=== PATIENT | female | born 1970 | race Two or more races ===

== ENCOUNTER 2019-03-21 09:38 | Inpatient (IN) | payer OTHER ==
[~2019-03-21] VITALS: Ht 154.9 cm; Wt 61.2 kg
[2019-03-21] MEDS ORDERED: SODIUM CHLORIDE FLUSH 10ML SYR IVF ONE (10:00)
[2019-03-21] MEDS ORDERED: ONDANSETRON 2MG/ML, 2ML IVPush ONE ×2 (10:00→12:00)
[2019-03-21] MEDS ORDERED: ONDANSETRON 2MG/ML, 2ML ONE ×2 (10:03→11:41)
[2019-03-21 10:23] LABS: BASOPHILS # (AUTO) 0.04 x10^3/uL (0-0.1); BASOPHILS % (AUTO) 0 % (0-1); EOSINOPHILS # (AUTO) 0.05 x10^3/uL (0-0.4); EOSINOPHILS % (AUTO) 1 % (1-7); LYMPHOCYTES # (AUTO) 1.75 x10^3/uL (1-3.4); LYMPHOCYTES % (AUTO) 19 % (22-44); MD NO; MEAN CORPUSCULAR HEMOGLOBIN 31.6 pg (27.0-34.8); MEAN CORPUSCULAR HGB CONC 34.1 g/dL (32.4-35.8); MEAN CORPUSCULAR VOLUME 92.6 fL (80-100); MEAN PLATELET VOLUME 8.2 fL (7.4-10.4); MONOCYTES # (AUTO) 0.43 x10^3/uL (0.2-0.8); MONOCYTES % (AUTO) 5 % (2-9); NEUTROPHILS % (AUTO) 76 % (42-75); PLATELET COUNT 410 x10^3/uL (130-400); RED BLOOD COUNT 5.31 x10^6/uL (3.82-5.3); RED CELL DISTRIBUTION WIDTH 12.4 % (9.6-15.2)
[2019-03-21 10:26] LABS: ALBUMIN 4.9 g/dL (3.4-5.0); ANION GAP 15 mmol/L (5-15); CALCIUM 10.5 mg/dL (8.5-10.1); CHLORIDE 89 mmol/L (98-107)
[2019-03-21 10:32] LABS: ALANINE AMINOTRANSFERASE 38 U/L (12-78); ALKALINE PHOSPHATASE 80 U/L (45-117); BILIRUBIN,TOTAL 0.8 mg/dL (0.2-1.0); CREATININE 1.62 mg/dL (0.55-1.02); TROPONIN I < 0.015 ng/mL (0.000-0.045)
--- NOTE | 2019-03-21 10:44 | NUR ---
LATE NOTE ENTRY FOR 0940: Pt presents to ED with c/o epigastric "burning", pain, and nausea after receibing antibiotic treatment for H. pylori. JONASN. Pt resting on gurney connected to NIBP, continous pulse ox, and cafeteria monitor. Bedrail up for safety measures. Call light within reach. Pt signed consent for her niece at bedside to provide translation after being offered [employer] translation. Pt polietly declined [employer] translation. Pt denies cp, sob, vomitting, diarrhea, traum, or syncope.
[2019-03-21 10:45] LABS: TOTAL PROTEIN 9.8 g/dL (6.4-8.2)
--- NOTE | 2019-03-21 10:55 | NUR ---
REPORT RECEIVED FROM JORDYN HANSEN, ASSUMING CARE OF PT AT THIS TIME
--- NOTE | 2019-03-21 11:04 | NUR ---
PT TAKEN FOR IMAGING
--- NOTE | 2019-03-21 11:27 | NUR ---
WHILE OVER IN RAD, PT BECAME SYNCOPAL WITH +ORTHOS, TACHY HR. NOW BACK IN ROOM PT STATES FEELING BETTER BP WNL AND HR BELOW 100. FAMLIY AT BEDSIDE. TO BE INFORMED. CALL LIGHT GREYSONIHIN REACH
[2019-03-21] MEDS ORDERED: POTASSIUM CHLORIDE 40 MEQ in SODIUM CHLORIDE 0.9% 500 ML IV ONE (11:30)
[2019-03-21] MEDS ORDERED: POTASSIUM CHLORIDE 20 MEQ TAB.ER.PRT PO ONE (11:30)
[2019-03-21] MEDS ORDERED: POTASSIUM CHLORIDE 20 MEQ TAB.ER.PRT ONE (11:38)
[2019-03-21] MEDS ORDERED: MORPHINE SULFATE 4 MG/ML, 1ML ONE (11:41)
--- NOTE | 2019-03-21 11:45 | NUR ---
VERBAL ORDERS RECEIVED FOR PAIN MEDS AND NAUSEA MEDS WELL A LITER BOLUS FOR BP.PT MEDCIATED. RESTING IN BED WITH STABLE VS. FAMILY AT BEDSIDE. US AT BEDSIDE. CALL LIGHT WTIHIN REACH
[2019-03-21] MEDS ORDERED: MORPHINE SULFATE 4 MG/ML, 1ML IVPush ONE (12:00)
--- NOTE | 2019-03-21 12:17 | NUR ---
HOSPITALIST AT BEDSIDE
[2019-03-21] MEDS ORDERED: POTASSIUM CHLORIDE 20 MEQ in LACTATED RINGERS 1,000 ML IV SCH (12:18)
--- NOTE | 2019-03-21 12:23 | NUR ---
REPORT GIVEN TO EZEQUIEL RN, PT READY FOR TRANSPORT UP TO FLOOR
[2019-03-21] MEDS ORDERED: hydrALAzine 20 MG/ML, 1ML IVPush PRN (12:30)
[2019-03-21] MEDS ORDERED: ONDANSETRON 2MG/ML, 2ML IVPush PRN (12:30)
[2019-03-21] MEDS ORDERED: LABETALOL 5MG/ML, 20ML IVPush PRN (12:30)
[2019-03-21] MEDS ORDERED: ACETAMINOPHEN 325 MG TABLET PO PRN (12:30)
[2019-03-21] MEDS ORDERED: morphine SULFATE 10 MG/ML, 1ML IVPush PRN (12:30)
[2019-03-21] MEDS: SODIUM CHLORIDE 0.9% 1,000 ML IV SCH ×2 (12:30→15:37)
[2019-03-21] MEDS ORDERED: PROMETHAZINE 25 MG/ML, 1ML IM PRN (12:30)
[2019-03-21 12:55] VITALS: BP 117/77
[2019-03-21 13:18] VITALS: BP 117/77
[2019-03-21 14:29] LABS: C-REACTIVE PROTEIN, QUANT 0.11 mg/dL (0.02-0.49)
[2019-03-21 14:54] LABS: HCT (SEDRATE) 39.4 % (34.6-47.8)
[2019-03-21] MEDS: HEPARIN 5,000 UNITS/ML, 1ML SQ SCH ×2 (14:56→22:51)
[2019-03-21 15:37] LABS: ANION GAP 10 mmol/L (5-15); CALCIUM 8.5 mg/dL (8.5-10.1); CHLORIDE 101 mmol/L (98-107); CREATININE 1.16 mg/dL (0.55-1.02)
[2019-03-21 16:02] LABS: HCG UR SG 1.019 (1.003-1.030); MICROSCOPIC INDICATED
[2019-03-21 16:17] LABS: CULTURE INDICATED? YES
[2019-03-21] MEDS: POTASSIUM CHLORIDE 20 MEQ TAB.ER.PRT PO SCH (16:52)
[2019-03-21] MEDS: POTASSIUM CHLORIDE 20 MEQ in LACTATED RINGERS 1,000 ML IV SCH (18:07)
[2019-03-21 19:29] VITALS: BP 100/64
[2019-03-22 01:08] VITALS: BP 99/62
[2019-03-22] MEDS: POTASSIUM CHLORIDE 20 MEQ in LACTATED RINGERS 1,000 ML IV SCH ×2 (02:24→16:54)
[2019-03-22 06:07] LABS: ALBUMIN 3.2 g/dL (3.4-5.0); ANION GAP 6 mmol/L (5-15); CALCIUM 8.7 mg/dL (8.5-10.1); CHLORIDE 107 mmol/L (98-107)
[2019-03-22 06:12] LABS: ALANINE AMINOTRANSFERASE 22 U/L (12-78); ALKALINE PHOSPHATASE 50 U/L (45-117); BILIRUBIN,TOTAL 0.7 mg/dL (0.2-1.0); CREATININE 0.73 mg/dL (0.55-1.02); TOTAL PROTEIN 6.4 g/dL (6.4-8.2)
[2019-03-22] MEDS: HEPARIN 5,000 UNITS/ML, 1ML SQ SCH ×3 (06:26→23:11)
[2019-03-22 07:34] LABS: HEMOGRAM NOTE RECHECKED; MD YES; MEAN CORPUSCULAR HEMOGLOBIN 32.3 pg (27.0-34.8); MEAN CORPUSCULAR HGB CONC 34.4 g/dL (32.4-35.8); MEAN CORPUSCULAR VOLUME 94.1 fL (80-100); MEAN PLATELET VOLUME 8.1 fL (7.4-10.4); PLATELET COUNT 267 x10^3/uL (130-400); RED BLOOD COUNT 3.54 x10^6/uL (3.82-5.3); RED CELL DISTRIBUTION WIDTH 12.6 % (9.6-15.2)
[2019-03-22] MEDS: POTASSIUM CHLORIDE 20 MEQ TAB.ER.PRT PO SCH ×2 (08:30→16:54)
[2019-03-22 08:40] VITALS: BP 103/67
[2019-03-22] MEDS ORDERED: ONDA4TAB12 PO (08:47)
[2019-03-22] MEDS ORDERED: CLAR500T9 PO (08:54)
[2019-03-22] MEDS ORDERED: FAMO20TA7 PO (08:54)
[2019-03-22] MEDS ORDERED: OMEP40CA6 PO (08:54)
[2019-03-22] MEDS ORDERED: CLAR-36 PO ×2 (08:54→08:56)
[2019-03-22] MEDS ORDERED: POTA25TA PO (09:00)
[2019-03-22] MEDS ORDERED: AMOX-291 PO (09:00)
[2019-03-22] MEDS ORDERED: ELET20TA PO (09:04)
[2019-03-22 09:06] LABS: BASOPHILS # (AUTO) 0.04 x10^3/uL (0-0.1); BASOPHILS % (AUTO) 1 % (0-1); EOSINOPHILS # (AUTO) 0.08 x10^3/uL (0-0.4); EOSINOPHILS % (AUTO) 2 % (1-7); LYMPHOCYTES # (AUTO) 1.58 x10^3/uL (1-3.4); LYMPHOCYTES % (AUTO) 37 % (22-44); MONOCYTES # (AUTO) 0.34 x10^3/uL (0.2-0.8); MONOCYTES % (AUTO) 8 % (2-9); NEUTROPHILS % (AUTO) 53 % (42-75)
[2019-03-22] MEDS: OXYcodone IR 5MG TABLET PO PRN (09:24)
[2019-03-22 13:50] VITALS: BP 102/64
[2019-03-22] MEDS: CLARITHROMYCIN 500 MG TABLET PO SCH (15:21)
[2019-03-22 19:06] VITALS: BP 105/70
[2019-03-22] MEDS: AMOXICILLIN 500 MG CAPSULE PO SCH (20:44)
[2019-03-23 00:35] VITALS: BP 108/67
[2019-03-23] MEDS: CLARITHROMYCIN 500 MG TABLET PO SCH ×2 (03:25→16:16)
[2019-03-23] MEDS: POTASSIUM CHLORIDE 20 MEQ in LACTATED RINGERS 1,000 ML IV SCH (05:27)
[2019-03-23 05:38] LABS: ALANINE AMINOTRANSFERASE 17 U/L (12-78); ALBUMIN 2.9 g/dL (3.4-5.0); ANION GAP 7 mmol/L (5-15); CALCIUM 8.5 mg/dL (8.5-10.1); CHLORIDE 108 mmol/L (98-107)
[2019-03-23 05:40] LABS: ALKALINE PHOSPHATASE 44 U/L (45-117); BILIRUBIN,TOTAL 0.4 mg/dL (0.2-1.0)
[2019-03-23] MEDS ORDERED: OMEPRAZOLE 20 MG CAPSULE.DR PO SCH (06:00)
[2019-03-23 06:55] VITALS: BP 103/66
[2019-03-23] MEDS ORDERED: ELETRIPTAN HYDROBROMIDE 40 MG HOMEMEDPO SCH (09:00)
[2019-03-23] MEDS ORDERED: FAMOTIDINE 20 MG TABLET PO SCH (09:00)
[2019-03-23] MEDS ORDERED: K-LYTE 25 MEQ TABLET.EFF PO SCH (09:00)
[2019-03-23] MEDS ORDERED: POTA20TA6 PO (10:13)
[2019-03-23] MEDS: HEPARIN 5,000 UNITS/ML, 1ML SQ SCH ×2 (11:15→15:00)
[2019-03-23] MEDS: POTASSIUM CHLORIDE 20 MEQ TAB.ER.PRT PO SCH ×2 (11:15→16:15)
[2019-03-23] MEDS: AMOXICILLIN 500 MG CAPSULE PO SCH (11:17)
[2019-03-23 13:34] VITALS: BP 98/65
[2019-03-23] MEDS ORDERED: DOCU-131 PO (14:21)
[2019-03-23] MEDS: OXYcodone IR 5MG TABLET PO PRN (16:15)
== END 2019-03-23 17:10 | disposition home or self-care (01) | DRG 683 ==
LOC: ED 12:17 → 4WST 12:18 → ED 12:28 → DCLOUNGE 03-23 16:31
PROVIDERS: ADMIT Internal Medicine; ATTEND Internal Medicine
DX: N17.0 Acute kidney failure with tubular necrosis (principal); E87.1 Hypo-osmolality and hyponatremia; C20 Malignant neoplasm of rectum; K27.9 Peptic ulcer, site unspecified, unspecified as acute or chronic, without hemorrhage or perforation; B96.81 Helicobacter pylori [H. pylori] as the cause of diseases classified elsewhere; D75.1 Secondary polycythemia; E83.52 Hypercalcemia; E86.0 Dehydration; E87.6 Hypokalemia; E87.8 Other disorders of electrolyte and fluid balance, not elsewhere classified
CPT/HCPCS: 36415; 74022; 74176; 76700; 80048; 80053; 81001; 81025; 82150; 83605; 83690; 83735; 84100; 84484; 85025; 85651; 86140; 87077; 87086; 87186; 93005; 96374; 96375; 96376; 99285; G0378; J1644; J2405; J3480; J2270; J7030; J7040; J7120

== ENCOUNTER 2019-03-27 05:26 | Inpatient (IN) | payer OTHER ==
[~2019-03-27] VITALS: Ht 154.9 cm; Wt 59.4 kg
[~2019-03-27 05:26] MED LIST: AMOX-291 PO; CLAR-36 PO; CLAR500T9 PO; DOCU-131 PO; ELET20TA PO; FAMO20TA7 PO; OMEP40CA6 PO; ONDA4TAB12 PO; POTA20TA6 PO; POTA25TA PO
[2019-03-27] MEDS ORDERED: MORPHINE SULFATE 4 MG/ML, 1ML IVPush PRN (06:00)
[2019-03-27] MEDS ORDERED: FAMOTIDINE 20 MG/2 ML IVP ONE (06:00)
[2019-03-27] MEDS ORDERED: ONDANSETRON 2MG/ML, 2ML IVPush ONE (06:00)
[2019-03-27] MEDS ORDERED: ONDANSETRON 2MG/ML, 2ML ONE (06:06)
[2019-03-27] MEDS ORDERED: FAMOTIDINE 20 MG/2 ML ONE (06:07)
[2019-03-27] MEDS ORDERED: MORPHINE SULFATE 4 MG/ML, 1ML ONE (06:07)
[2019-03-27 06:19] LABS: BASOPHILS # (AUTO) 0.02 x10^3/uL (0-0.1); BASOPHILS % (AUTO) 0 % (0-1); EOSINOPHILS # (AUTO) 0.07 x10^3/uL (0-0.4); EOSINOPHILS % (AUTO) 1 % (1-7); LYMPHOCYTES # (AUTO) 1.65 x10^3/uL (1-3.4); LYMPHOCYTES % (AUTO) 25 % (22-44); MD NO; MEAN CORPUSCULAR HEMOGLOBIN 32.3 pg (27.0-34.8); MEAN CORPUSCULAR HGB CONC 34.4 g/dL (32.4-35.8); MEAN CORPUSCULAR VOLUME 93.9 fL (80-100); MEAN PLATELET VOLUME 8.2 fL (7.4-10.4); MONOCYTES # (AUTO) 0.43 x10^3/uL (0.2-0.8); MONOCYTES % (AUTO) 7 % (2-9); NEUTROPHILS # (AUTO) 4.43 x10^3/uL (1.8-6.8); NEUTROPHILS % (AUTO) 67 % (42-75); PLATELET COUNT 377 x10^3/uL (130-400); RED BLOOD COUNT 4.89 x10^6/uL (3.82-5.3); RED CELL DISTRIBUTION WIDTH 12.6 % (9.6-15.2)
[2019-03-27 06:30] LABS: ALANINE AMINOTRANSFERASE 25 U/L (12-78); ALBUMIN 4.6 g/dL (3.4-5.0); ANION GAP 12 mmol/L (5-15); CALCIUM 9.9 mg/dL (8.5-10.1); CHLORIDE 81 mmol/L (98-107); CREATININE 1.52 mg/dL (0.55-1.02)
[2019-03-27 06:32] LABS: ALKALINE PHOSPHATASE 79 U/L (45-117); TOTAL PROTEIN 9.1 g/dL (6.4-8.2)
--- NOTE | 2019-03-27 06:58 | NUR ---
REPORT RECIEVED FROM RAE. PT RESTING COMFORTABLE
[2019-03-27] MEDS: SODIUM CHLORIDE 0.9% 1,000 ML IV SCH ×2 (07:13→09:30)
[2019-03-27 07:29] LABS: FREE T4 (FREE THYROXINE) 1.42 ng/dL (0.76-1.46); THYROID STIMULATING HORMONE 0.581 mIU/L (0.358-3.740)
--- NOTE | 2019-03-27 08:23 | NUR ---
REPORT GIVEN TO JAX SHELBY 2. PT DENIES ANY VOMITING AT TIME. PT VS STABLE FOR TRANSFER.
--- NOTE | 2019-03-27 08:25 | NUR ---
REPORT GIVEN TO EZEQUIEL HANSEN
[2019-03-27 09:08] VITALS: BP 107/71
[2019-03-27] MEDS ORDERED: ACETAMINOPHEN 325 MG TABLET PO PRN (11:30)
[2019-03-27] MEDS ORDERED: POTASSIUM CHLORIDE 20 MEQ TAB.ER.PRT PO ONE (11:30)
[2019-03-27] MEDS ORDERED: ONDANSETRON 2MG/ML, 2ML IVPush PRN (11:30)
[2019-03-27] MEDS ORDERED: ONDANSETRON ODT 4 MG PO PRN (11:30)
[2019-03-27] MEDS: HEPARIN 5,000 UNITS/ML, 1ML SQ SCH ×2 (11:56→20:14)
[2019-03-27] MEDS ORDERED: CLARITHROMYCIN 500 MG TABLET PO SCH (12:30)
[2019-03-27] MEDS: PANTOPRAZOLE 40 MG IV IVPush SCH (12:30)
[2019-03-27 12:36] LABS: POTASSIUM,URINE RANDOM 21 mmol/L; SODIUM,URINE RANDOM 10 mmol/L
[2019-03-27 12:39] LABS: OSMOLALITY,URINE 219 mOsm/kg (500-850)
[2019-03-27] MEDS ORDERED: PHARMACY MAY ADJ FOR RENAL FX MC PRN (13:00)
[2019-03-27] MEDS ORDERED: POTASSIUM CHLORIDE 20 MEQ in SODIUM CHLORIDE 0.9% 250 ML IV ONE (13:00)
[2019-03-27 13:03] VITALS: BP 112/73
[2019-03-27 13:30] LABS: CHLORIDE,URINE RANDOM < 10 mmol/L
--- NOTE | 2019-03-27 15:56 | NUR ---
REC: Reg/thins as tolerated Addendum: 03/27/19 at 1556 by Altagracia PARADA Amended: Links added.
[2019-03-27] MEDS: SUCRALFATE 1 GM/10 ML UDC PO SCH ×2 (16:00→20:13)
[2019-03-27 19:12] VITALS: BP 95/66
[2019-03-27] MEDS: DOCUSATE 100 MG CAPSULE PO SCH (20:14)
[2019-03-27] MEDS ORDERED: AMOXICILLIN 500 MG CAPSULE PO SCH (21:00)
[2019-03-28 02:46] VITALS: BP 99/66
[2019-03-28 04:46] LABS: ALBUMIN 3.9 g/dL (3.4-5.0); ANION GAP 11 mmol/L (5-15); CALCIUM 9.3 mg/dL (8.5-10.1); CHLORIDE 93 mmol/L (98-107)
[2019-03-28 04:49] LABS: ALANINE AMINOTRANSFERASE 20 U/L (12-78); ALKALINE PHOSPHATASE 64 U/L (45-117); BILIRUBIN,TOTAL 0.6 mg/dL (0.2-1.0); CREATININE 1.44 mg/dL (0.55-1.02); TOTAL PROTEIN 8.3 g/dL (6.4-8.2)
[2019-03-28 04:56] LABS: BASOPHILS # (AUTO) 0.03 x10^3/uL (0-0.1); BASOPHILS % (AUTO) 1 % (0-1); EOSINOPHILS % (AUTO) 2 % (1-7); LYMPHOCYTES % (AUTO) 37 % (22-44); MD NO; MEAN CORPUSCULAR HEMOGLOBIN 31.6 pg (27.0-34.8); MEAN CORPUSCULAR VOLUME 92.9 fL (80-100); MEAN PLATELET VOLUME 8.2 fL (7.4-10.4); MONOCYTES # (AUTO) 0.49 x10^3/uL (0.2-0.8); MONOCYTES % (AUTO) 10 % (2-9); NEUTROPHILS # (AUTO) 2.62 x10^3/uL (1.8-6.8); NEUTROPHILS % (AUTO) 51 % (42-75); PLATELET COUNT 329 x10^3/uL (130-400); RED BLOOD COUNT 4.56 x10^6/uL (3.82-5.3); RED CELL DISTRIBUTION WIDTH 12.8 % (9.6-15.2)
[2019-03-28] MEDS: HEPARIN 5,000 UNITS/ML, 1ML SQ SCH ×3 (05:03→20:28)
[2019-03-28 07:47] VITALS: BP 94/55
[2019-03-28] MEDS ORDERED: NS + 20MEQ KCL 1,000 ML IV SCH ×2 (08:00→19:00)
[2019-03-28 08:42] LABS: ANION GAP 11 mmol/L (5-15); CALCIUM 9.6 mg/dL (8.5-10.1); CHLORIDE 93 mmol/L (98-107); CREATININE 1.45 mg/dL (0.55-1.02)
[2019-03-28] MEDS: SUCRALFATE 1 GM/10 ML UDC PO SCH ×4 (08:42→20:28)
[2019-03-28] MEDS: FAMOTIDINE 20 MG TABLET PO SCH (08:42)
[2019-03-28] MEDS: DOCUSATE 100 MG CAPSULE PO SCH ×2 (08:42→20:28)
[2019-03-28] MEDS: PANTOPRAZOLE 40 MG IV IVPush SCH (08:42)
[2019-03-28] MEDS: K-LYTE 25 MEQ TABLET.EFF PO SCH (08:43)
[2019-03-28] MEDS ORDERED: ELETRIPTAN 40MG TABLET PO SCH (09:00)
[2019-03-28 12:27] VITALS: BP 101/69
[2019-03-28 17:10] LABS: ANION GAP 10 mmol/L (5-15); CALCIUM 8.9 mg/dL (8.5-10.1); CHLORIDE 95 mmol/L (98-107); CREATININE 1.24 mg/dL (0.55-1.02)
[2019-03-28 20:18] VITALS: BP 104/65
[2019-03-28 23:51] LABS: ANION GAP 10 mmol/L (5-15); CALCIUM 8.8 mg/dL (8.5-10.1); CHLORIDE 96 mmol/L (98-107); CREATININE 1.21 mg/dL (0.55-1.02)
[2019-03-29 01:58] VITALS: BP 97/67
[2019-03-29] MEDS: HEPARIN 5,000 UNITS/ML, 1ML SQ SCH (05:00)
[2019-03-29 05:48] LABS: ANION GAP 8 mmol/L (5-15); CALCIUM 8.9 mg/dL (8.5-10.1); CHLORIDE 99 mmol/L (98-107); CREATININE 1.25 mg/dL (0.55-1.02)
[2019-03-29] MEDS ORDERED: PANTOPROZOLE 40MG TABLET PO SCH (06:00)
[2019-03-29] MEDS ORDERED: POTASSIUM CHLORIDE 10% 40 MEQ/30 ML UDC PO ONE (07:00)
[2019-03-29 07:21] VITALS: BP 109/73
[2019-03-29] MEDS ORDERED: NS + 20MEQ KCL 1,000 ML IV SCH ×2 (08:00→19:00)
[2019-03-29] MEDS ORDERED: PANT40TA3 PO (08:31)
[2019-03-29] MEDS ORDERED: SUCR1TAB33 PO (08:32)
[2019-03-29] MEDS: SUCRALFATE 1 GM/10 ML UDC PO SCH (08:40)
[2019-03-29] MEDS: FAMOTIDINE 20 MG TABLET PO SCH (08:40)
[2019-03-29] MEDS: K-LYTE 25 MEQ TABLET.EFF PO SCH (08:41)
[2019-03-29] MEDS: DOCUSATE 100 MG CAPSULE PO SCH (08:41)
[2019-03-29] MEDS ORDERED: POTASSIUM CHLORIDE 10 MEQ TABLET.ER ONE (08:47)
== END 2019-03-29 10:40 | disposition home or self-care (01) | DRG 683 ==
LOC: ED 07:34 → 4WST 08:52 → DCLOUNGE 03-29 10:15
PROVIDERS: ADMIT Internal Medicine; ATTEND Internal Medicine
DX: N17.9 Acute kidney failure, unspecified (principal); E87.1 Hypo-osmolality and hyponatremia; E86.0 Dehydration; E87.6 Hypokalemia; N18.2 Chronic kidney disease, stage 2 (mild); R10.13 Epigastric pain; Z85.048 Personal history of other malignant neoplasm of rectum, rectosigmoid junction, and anus; Z87.11 Personal history of peptic ulcer disease
CPT/HCPCS: 36415; J3490; 80048; 80053; 80307; 82436; 82533; 82570; 83690; 83735; 83930; 83935; 84100; 84132; 84133; 84295; 84300; 84439; 84443; 85025; 93005; 93975; G0378; J1644; J2405; J3480; Q0162; C9113; J2270; J7030; J7050

== ENCOUNTER 2019-03-31 16:40 | Inpatient (IN) | payer OTHER ==
[~2019-03-31] VITALS: Ht 154.9 cm; Wt 59.7 kg
[~2019-03-31 16:40] MED LIST changes: +PANT40TA3 PO; +SUCR1TAB33 PO
--- NOTE | 2019-03-31 17:25 | NUR ---
THIS IS A 48 YEAR OLD FEMALE WHO C/O ABD PAIN X 1 DAY. PT REPORTS STARTED THIS MORNING IN EPIGASTRIC REGION AND NO RELIEF . PT REPORTS SHE HAS BEEN SEEN FOR ABD DISTRESS BEFORE.
[2019-03-31] MEDS ORDERED: MAALOX/HYOSCYAMINE/LIDOCAINE 45 ML BTL PO ONE (17:30)
[2019-03-31 17:33] LABS: BASOPHILS # (AUTO) 0.06 x10^3/uL (0-0.1); BASOPHILS % (AUTO) 1 % (0-1); EOSINOPHILS # (AUTO) 0.06 x10^3/uL (0-0.4); EOSINOPHILS % (AUTO) 1 % (1-7); LYMPHOCYTES # (AUTO) 3.12 x10^3/uL (1-3.4); LYMPHOCYTES % (AUTO) 35 % (22-44); MD NO; MEAN CORPUSCULAR HEMOGLOBIN 32.2 pg (27.0-34.8); MEAN CORPUSCULAR HGB CONC 34.4 g/dL (32.4-35.8); MEAN CORPUSCULAR VOLUME 93.8 fL (80-100); MEAN PLATELET VOLUME 8.4 fL (7.4-10.4); MONOCYTES # (AUTO) 0.57 x10^3/uL (0.2-0.8); MONOCYTES % (AUTO) 6 % (2-9); NEUTROPHILS # (AUTO) 5.01 x10^3/uL (1.8-6.8); NEUTROPHILS % (AUTO) 57 % (42-75); PLATELET COUNT 420 x10^3/uL (130-400); RED BLOOD COUNT 4.87 x10^6/uL (3.82-5.3); RED CELL DISTRIBUTION WIDTH 12.4 % (9.6-15.2)
[2019-03-31 17:34] LABS: ALANINE AMINOTRANSFERASE 22 U/L (12-78); ANION GAP 12 mmol/L (5-15); CALCIUM 10.1 mg/dL (8.5-10.1); CHLORIDE 83 mmol/L (98-107); CREATININE 2.26 mg/dL (0.55-1.02)
[2019-03-31 17:36] LABS: ALKALINE PHOSPHATASE 86 U/L (45-117); BILIRUBIN,TOTAL 0.9 mg/dL (0.2-1.0); TOTAL PROTEIN 9.5 g/dL (6.4-8.2)
[2019-03-31] MEDS ORDERED: MAALOX/HYOSCYAMINE/LIDOCAINE 45 ML BTL ONE (17:44)
[2019-03-31] MEDS: NS + 40MEQ KCL 1,000 ML IV SCH ×2 (18:00→23:16)
--- NOTE | 2019-03-31 18:19 | NUR ---
PT RESTING, IV INFUSING WELL. PT VERBALIZED UNDERSTANDING THAT SHE WILL BE ADMITTED, VERBALIZED NO OTHER NEEDS AT THIS TIME
--- NOTE | 2019-03-31 19:13 | NUR ---
VILMA HOSPITALIST PA AT BEDSIDE TALKING WITH PT AND FAMILY REGARDING ADMISSION, PT UP TO BATHROOM FOR UA, DAUGHTER WITH, AMBULATORY WITH SLOW BUT STEADY GAIT, FALL RISK SOCKS PLACED FOR SAFETY.
--- NOTE | 2019-03-31 19:29 | NUR ---
PT STATED THAT PRIOR TO USING RESTROOM THAT SHE FELT THE NEED TO VOID, WENT TO BATHROOM AND DAUGHTER STATES THAT PT WAS UNABLE TO OBTAIN URINE ALL THAT HAPPENED WAS CLEAR DISCHARGE FROM RECTUM, DAUGHTER STATES THAT IT SOUNDED IF SHE WAS VOIDING, PT DID NOT CATCH IN CUP SHE BELIEVED IT WAS STOOL. STATES THAT SHE NO LONGER FEELS THE NEED TO VOID. WANTED TO LET MD KNOW.
[2019-03-31] MEDS ORDERED: DOCUSATE 100 MG CAPSULE PO PRN (20:00)
[2019-03-31] MEDS ORDERED: hydrALAzine 20 MG/ML, 1ML IVPush PRN (20:00)
[2019-03-31 21:37] LABS: ANION GAP 10 mmol/L (5-15); CALCIUM 9.3 mg/dL (8.5-10.1); CHLORIDE 90 mmol/L (98-107); CREATININE 2.13 mg/dL (0.55-1.02)
[2019-03-31 21:45] VITALS: BP 120/67
[2019-03-31] MEDS: HEPARIN 5,000 UNITS/ML, 1ML SQ SCH (21:46)
[2019-03-31] MEDS: ACETAMINOPHEN 325 MG TABLET PO PRN (21:59)
[2019-03-31 22:41] LABS: CULTURE INDICATED? YES; MICROSCOPIC INDICATED
[2019-03-31 22:45] LABS: OSMOLALITY,URINE 366 mOsm/kg (500-850)
[2019-03-31 22:49] LABS: POTASSIUM,URINE RANDOM 44 mmol/L; SODIUM,URINE RANDOM 5 mmol/L
[2019-03-31 22:53] LABS: CHLORIDE,URINE RANDOM < 10 mmol/L
[2019-04-01 01:09] LABS: ANION GAP 9 mmol/L (5-15); CHLORIDE 96 mmol/L (98-107); CREATININE 2.04 mg/dL (0.55-1.02)
[2019-04-01 03:01] VITALS: BP 101/56
[2019-04-01 04:39] LABS: BASOPHILS # (AUTO) 0.03 x10^3/uL (0-0.1); BASOPHILS % (AUTO) 1 % (0-1); EOSINOPHILS % (AUTO) 2 % (1-7); LYMPHOCYTES # (AUTO) 2.67 x10^3/uL (1-3.4); LYMPHOCYTES % (AUTO) 45 % (22-44); MD NO; MEAN CORPUSCULAR HEMOGLOBIN 30.9 pg (27.0-34.8); MEAN CORPUSCULAR HGB CONC 33.3 g/dL (32.4-35.8); MEAN CORPUSCULAR VOLUME 92.9 fL (80-100); MEAN PLATELET VOLUME 8.1 fL (7.4-10.4); MONOCYTES # (AUTO) 0.41 x10^3/uL (0.2-0.8); MONOCYTES % (AUTO) 7 % (2-9); NEUTROPHILS # (AUTO) 2.66 x10^3/uL (1.8-6.8); NEUTROPHILS % (AUTO) 45 % (42-75); PLATELET COUNT 328 x10^3/uL (130-400); RED BLOOD COUNT 4.21 x10^6/uL (3.82-5.3)
[2019-04-01 04:45] LABS: CHLORIDE 96 mmol/L (98-107)
[2019-04-01 04:59] LABS: ANION GAP 9 mmol/L (5-15); CREATININE 1.93 mg/dL (0.55-1.02); FREE T4 (FREE THYROXINE) 1.43 ng/dL (0.76-1.46); THYROID STIMULATING HORMONE 0.722 mIU/L (0.358-3.740)
[2019-04-01] MEDS: HEPARIN 5,000 UNITS/ML, 1ML SQ SCH ×3 (05:38→21:37)
[2019-04-01 08:16] VITALS: BP 104/71
[2019-04-01 08:43] LABS: ANION GAP 7 mmol/L (5-15); CALCIUM 9.3 mg/dL (8.5-10.1); CHLORIDE 98 mmol/L (98-107); CREATININE 1.84 mg/dL (0.55-1.02)
[2019-04-01 13:20] VITALS: BP 96/65
[2019-04-01 13:37] LABS: ANION GAP 9 mmol/L (5-15); CALCIUM 8.8 mg/dL (8.5-10.1); CHLORIDE 98 mmol/L (98-107)
[2019-04-01] MEDS: ACETAMINOPHEN 325 MG TABLET PO PRN ×2 (14:08→19:05)
[2019-04-01 14:49] LABS: INTERNATIONAL NORMALIZED RATIO 0.95 (0.93-1.1)
[2019-04-01 14:56] LABS: CLOSTRIDIUM DIFFICILE ANTIGEN NEGATIVE; CLOSTRIDIUM DIFFICILE TOXIN NEGATIVE (Negative)
[2019-04-01 17:54] LABS: ANION GAP 8 mmol/L (5-15); CALCIUM 8.7 mg/dL (8.5-10.1); CHLORIDE 96 mmol/L (98-107)
[2019-04-01] MEDS ORDERED: SODIUM CHLORIDE 0.45% 1,000 ML IV SCH (18:00)
[2019-04-01] MEDS ORDERED: NS + 40MEQ KCL 1,000 ML IV SCH (18:00)
[2019-04-01 19:24] VITALS: BP 97/64
[2019-04-01] MEDS ORDERED: BUTALB/APAP/CAFFEINE 50MG/325MG/40MG PO ONE (21:00)
[2019-04-02 01:47] VITALS: BP 106/71
[2019-04-02] MEDS: HEPARIN 5,000 UNITS/ML, 1ML SQ SCH ×3 (06:13→22:45)
[2019-04-02 07:17] LABS: HEMOGLOBIN A1C 5.9 % (4.2-6.3)
[2019-04-02 08:00] VITALS: BP 97/66
[2019-04-02 08:59] LABS: ANION GAP 10 mmol/L (5-15); CALCIUM 9.2 mg/dL (8.5-10.1); CHLORIDE 96 mmol/L (98-107); CREATININE 1.45 mg/dL (0.55-1.02)
[2019-04-02] MEDS ORDERED: BUTALB/APAP/CAFFEINE 50MG/325MG/40MG PO PRN (09:00)
[2019-04-02] MEDS ORDERED: POTASSIUM CHLORIDE 20 MEQ in LACTATED RINGERS 1,000 ML IV SCH (09:30)
[2019-04-02] MEDS ORDERED: POTASSIUM CHLORIDE 20 MEQ PACKET PO SCH (09:30)
[2019-04-02] MEDS: POTASSIUM CHLORIDE 20 MEQ PACKET PO SCH ×3 (10:54→17:19)
[2019-04-02 14:00] VITALS: BP 112/74
[2019-04-02] MEDS: SUMATRIPTAN 100 MG TABLET PO PRN (14:42)
[2019-04-02] MEDS ORDERED: SUMATRIPTAN 50 MG TABLET PO ONE (16:00)
[2019-04-02 19:16] VITALS: BP 108/64
[2019-04-03 01:48] VITALS: BP 105/65
[2019-04-03 06:07] LABS: ALBUMIN 4.1 g/dL (3.4-5.0); ANION GAP 12 mmol/L (5-15); CALCIUM 9.3 mg/dL (8.5-10.1); CHLORIDE 98 mmol/L (98-107)
[2019-04-03] MEDS: HEPARIN 5,000 UNITS/ML, 1ML SQ SCH ×3 (06:10→23:16)
[2019-04-03 06:11] LABS: ALANINE AMINOTRANSFERASE 21 U/L (12-78); ALKALINE PHOSPHATASE 71 U/L (45-117); BILIRUBIN,TOTAL 0.3 mg/dL (0.2-1.0); CREATININE 1.37 mg/dL (0.55-1.02)
[2019-04-03 07:41] VITALS: BP 107/67
[2019-04-03] MEDS: POTASSIUM CHLORIDE 20 MEQ PACKET PO SCH ×3 (10:04→18:07)
[2019-04-03] MEDS: CEFTRIAXONE PMX 1GM/50ML 50 ML IV SCH (10:04)
[2019-04-03 12:22] VITALS: BP 109/65
[2019-04-03 14:54] LABS: BASOPHILS # (AUTO) 0.05 x10^3/uL (0-0.1); BASOPHILS % (AUTO) 1 % (0-1); EOSINOPHILS # (AUTO) 0.13 x10^3/uL (0-0.4); EOSINOPHILS % (AUTO) 2 % (1-7); LYMPHOCYTES # (AUTO) 2.42 x10^3/uL (1-3.4); LYMPHOCYTES % (AUTO) 36 % (22-44); MD NO; MEAN CORPUSCULAR HEMOGLOBIN 32.1 pg (27.0-34.8); MEAN CORPUSCULAR VOLUME 94.5 fL (80-100); MEAN PLATELET VOLUME 8.1 fL (7.4-10.4); MONOCYTES # (AUTO) 0.38 x10^3/uL (0.2-0.8); MONOCYTES % (AUTO) 6 % (2-9); NEUTROPHILS # (AUTO) 3.71 x10^3/uL (1.8-6.8); NEUTROPHILS % (AUTO) 56 % (42-75); PLATELET COUNT 384 x10^3/uL (130-400); RED BLOOD COUNT 4.29 x10^6/uL (3.82-5.3); RED CELL DISTRIBUTION WIDTH 12.8 % (9.6-15.2)
[2019-04-03] MEDS: SUMATRIPTAN 100 MG TABLET PO PRN (15:04)
[2019-04-03 20:00] VITALS: BP 96/45
[2019-04-04 01:40] VITALS: BP 101/69
[2019-04-04 05:54] LABS: ANION GAP 12 mmol/L (5-15); CALCIUM 9.8 mg/dL (8.5-10.1); CHLORIDE 96 mmol/L (98-107)
[2019-04-04 05:55] LABS: CREATININE 1.39 mg/dL (0.55-1.02)
[2019-04-04 08:09] VITALS: BP 100/71
[2019-04-04] MEDS: HEPARIN 5,000 UNITS/ML, 1ML SQ SCH ×2 (08:44→18:39)
[2019-04-04] MEDS: POTASSIUM CHLORIDE 20 MEQ PACKET PO SCH ×3 (08:44→18:39)
[2019-04-04] MEDS: CEFTRIAXONE PMX 1GM/50ML 50 ML IV SCH (09:00)
[2019-04-04] MEDS: ONDANSETRON 2MG/ML, 2ML IVPush PRN ×2 (09:00→23:31)
[2019-04-04] MEDS: ACETAMINOPHEN 325 MG TABLET PO PRN (09:37)
[2019-04-04 12:59] VITALS: BP 105/72
[2019-04-04] MEDS ORDERED: ALUMINUM/MAG/SIMETHICONE 30 ML UDC PO ONE (13:00)
[2019-04-04] MEDS ORDERED: MAALOX/HYOSCYAMINE/LIDOCAINE 45 ML BTL PO ONE (15:00)
[2019-04-04] MEDS ORDERED: MAALOX/HYOSCYAMINE/LIDOCAINE 45 ML BTL PO PRN (17:00)
[2019-04-04 19:25] VITALS: BP 113/81
[2019-04-05 02:04] VITALS: BP 108/75
[2019-04-05] MEDS: SUMATRIPTAN 100 MG TABLET PO PRN (02:16)
[2019-04-05] MEDS: HEPARIN 5,000 UNITS/ML, 1ML SQ SCH ×2 (02:16→10:44)
[2019-04-05] MEDS: ONDANSETRON 2MG/ML, 2ML IVPush PRN ×3 (05:39→17:52)
[2019-04-05 06:43] VITALS: BP 105/77
[2019-04-05] MEDS: POTASSIUM CHLORIDE 20 MEQ PACKET PO SCH ×4 (08:00→16:02)
[2019-04-05] MEDS: METOCLOPRAMIDE 5 MG/ML, 2ML IVPush PRN ×3 (08:51→21:36)
[2019-04-05] MEDS: MORPHINE SULFATE 4 MG/ML, 1ML IVPush PRN ×4 (08:51→23:19)
[2019-04-05] MEDS: CEFTRIAXONE PMX 1GM/50ML 50 ML IV SCH (09:03)
[2019-04-05 09:54] LABS: ANION GAP 15 mmol/L (5-15); CALCIUM 10.6 mg/dL (8.5-10.1); CHLORIDE 90 mmol/L (98-107); CREATININE 2.72 mg/dL (0.55-1.02)
[2019-04-05] MEDS ORDERED: SODIUM CHLORIDE 0.9% 1,000 ML IV SCH (11:30)
[2019-04-05] MEDS: POTASSIUM CHLORIDE 20 MEQ TAB.ER.PRT PO SCH ×2 (11:30→15:30)
[2019-04-05] MEDS ORDERED: NS + 40MEQ KCL 500 ML IV ONE (12:30)
[2019-04-05 12:38] VITALS: BP 100/65
[2019-04-05] MEDS ORDERED: POTASSIUM CHLORIDE 40 MEQ in SODIUM CHLORIDE 0.9% 500 ML IV ONE (13:00)
[2019-04-05] MEDS: NS + 20MEQ KCL 1,000 ML IV SCH (17:30)
[2019-04-05] MEDS: TEMAZEPAM 15 MG CAPSULE PO PRN (20:49)
[2019-04-05 23:11] VITALS: BP 108/70
[2019-04-06] VITALS (12 sets, daily range): BP systolic 89–116; BP diastolic 57–78
[2019-04-06] MEDS: NS + 20MEQ KCL 1,000 ML IV SCH ×3 (02:05→22:36)
[2019-04-06 05:35] LABS: BASOPHILS # (AUTO) 0.05 x10^3/uL (0-0.1); BASOPHILS % (AUTO) 1 % (0-1); EOSINOPHILS % (AUTO) 0 % (1-7); LYMPHOCYTES % (AUTO) 15 % (22-44); MD NO; MEAN CORPUSCULAR HEMOGLOBIN 32.3 pg (27.0-34.8); MEAN CORPUSCULAR HGB CONC 34.4 g/dL (32.4-35.8); MEAN CORPUSCULAR VOLUME 93.9 fL (80-100); MEAN PLATELET VOLUME 8.2 fL (7.4-10.4); MONOCYTES # (AUTO) 0.83 x10^3/uL (0.2-0.8); MONOCYTES % (AUTO) 8 % (2-9); NEUTROPHILS # (AUTO) 7.93 x10^3/uL (1.8-6.8); NEUTROPHILS % (AUTO) 77 % (42-75); PLATELET COUNT 390 x10^3/uL (130-400); RED BLOOD COUNT 4.39 x10^6/uL (3.82-5.3); RED CELL DISTRIBUTION WIDTH 12.8 % (9.6-15.2)
[2019-04-06 05:48] LABS: ANION GAP 15 mmol/L (5-15); CALCIUM 9.2 mg/dL (8.5-10.1); CHLORIDE 101 mmol/L (98-107)
[2019-04-06 05:49] LABS: CREATININE 3.52 mg/dL (0.55-1.02)
[2019-04-06] MEDS: POTASSIUM CHLORIDE 20 MEQ PACKET PO SCH ×3 (07:00→17:44)
[2019-04-06 07:25] LABS: HCG UR SG 1.018 (1.003-1.030)
[2019-04-06] MEDS: METOCLOPRAMIDE 5 MG/ML, 2ML IVPush PRN (07:37)
[2019-04-06] MEDS: MORPHINE SULFATE 4 MG/ML, 1ML IVPush PRN (07:45)
[2019-04-06] MEDS ORDERED: PHENYLEPHRINE 10 MG/ML ONE (09:25)
[2019-04-06] MEDS ORDERED: PROPOFOL 10 MG/ML, 50ML ONE (09:25)
[2019-04-06] MEDS: CEFTRIAXONE PMX 1GM/50ML 50 ML IV SCH (10:05)
[2019-04-06] MEDS: PANTOPRAZOLE 40 MG IV IVPush SCH ×2 (11:11→22:36)
[2019-04-06] MEDS: SEVELAMER CARBONATE 800MG TAB PO SCH ×2 (12:41→17:44)
[2019-04-06] MEDS ORDERED: METOCLOPRAMIDE 5 MG/ML, 2ML IVPush PRN (16:00)
[2019-04-07 02:11] VITALS: BP 98/62
[2019-04-07 05:44] LABS: ANION GAP 5 mmol/L (5-15); CALCIUM 8.3 mg/dL (8.5-10.1); CHLORIDE 107 mmol/L (98-107)
[2019-04-07 05:45] LABS: CREATININE 1.47 mg/dL (0.55-1.02)
[2019-04-07 06:01] LABS: BASOPHILS # (AUTO) 0.05 x10^3/uL (0-0.1); BASOPHILS % (AUTO) 1 % (0-1); EOSINOPHILS # (AUTO) 0.09 x10^3/uL (0-0.4); EOSINOPHILS % (AUTO) 2 % (1-7); LYMPHOCYTES # (AUTO) 2.24 x10^3/uL (1-3.4); LYMPHOCYTES % (AUTO) 39 % (22-44); MD NO; MEAN CORPUSCULAR HEMOGLOBIN 32.2 pg (27.0-34.8); MEAN CORPUSCULAR HGB CONC 34.3 g/dL (32.4-35.8); MEAN PLATELET VOLUME 8.4 fL (7.4-10.4); MONOCYTES # (AUTO) 0.44 x10^3/uL (0.2-0.8); MONOCYTES % (AUTO) 8 % (2-9); NEUTROPHILS # (AUTO) 2.87 x10^3/uL (1.8-6.8); NEUTROPHILS % (AUTO) 50 % (42-75); PLATELET COUNT 273 x10^3/uL (130-400); RED BLOOD COUNT 3.23 x10^6/uL (3.82-5.3); RED CELL DISTRIBUTION WIDTH 12.9 % (9.6-15.2)
[2019-04-07] MEDS: SUMATRIPTAN 100 MG TABLET PO PRN (06:06)
[2019-04-07] MEDS: NS + 20MEQ KCL 1,000 ML IV SCH ×2 (06:07→13:33)
[2019-04-07 07:04] VITALS: BP 90/57
[2019-04-07] MEDS: PANTOPRAZOLE 40 MG IV IVPush SCH ×2 (10:34→22:45)
[2019-04-07] MEDS: CEFTRIAXONE PMX 1GM/50ML 50 ML IV SCH (10:34)
[2019-04-07] MEDS: POTASSIUM CHLORIDE 20 MEQ PACKET PO SCH ×3 (10:35→17:56)
[2019-04-07] MEDS: SEVELAMER CARBONATE 800MG TAB PO SCH ×2 (10:35→13:33)
[2019-04-07 12:50] VITALS: BP 103/50
[2019-04-07] MEDS: HEPARIN 5,000 UNITS/ML, 1ML SQ SCH (17:56)
[2019-04-07 20:15] VITALS: BP 93/58
[2019-04-08 01:07] VITALS: BP 88/56
[2019-04-08] MEDS: NS + 20MEQ KCL 1,000 ML IV SCH (01:53)
[2019-04-08] MEDS: HEPARIN 5,000 UNITS/ML, 1ML SQ SCH ×2 (01:53→12:19)
[2019-04-08] MEDS: TEMAZEPAM 15 MG CAPSULE PO PRN (02:02)
[2019-04-08 05:16] LABS: ANION GAP 5 mmol/L (5-15); CALCIUM 7.7 mg/dL (8.5-10.1); CHLORIDE 115 mmol/L (98-107); CREATININE 0.88 mg/dL (0.55-1.02)
[2019-04-08 07:48] VITALS: BP 94/61
== END 2019-04-08 14:20 | disposition home or self-care (01) | DRG 393 ==
LOC: ED 17:42 → EDIP 19:40 → 4WST 20:58 → DCLOUNGE 04-08 14:06
PROVIDERS: ADMIT Family Medicine; ATTEND Internal Medicine
PROC: 0DBP8ZZ Excision of Rectum, Via Natural or Artificial Opening Endoscopic (ICD-10-PCS; principal; 2019-04-06 09:00)
DX: D12.8 Benign neoplasm of rectum (principal); N17.0 Acute kidney failure with tubular necrosis; N39.0 Urinary tract infection, site not specified; E87.1 Hypo-osmolality and hyponatremia; K62.9 Disease of anus and rectum, unspecified; E87.6 Hypokalemia; N18.2 Chronic kidney disease, stage 2 (mild); B96.4 Proteus (mirabilis) (morganii) as the cause of diseases classified elsewhere; I95.9 Hypotension, unspecified; R73.9 Hyperglycemia, unspecified; E02 Subclinical iodine-deficiency hypothyroidism; G43.909 Migraine, unspecified, not intractable, without status migrainosus; E86.0 Dehydration; E86.1 Hypovolemia; K21.9 Gastro-esophageal reflux disease without esophagitis; R73.03 Prediabetes; Z79.899 Other long term (current) drug therapy; Z85.048 Personal history of other malignant neoplasm of rectum, rectosigmoid junction, and anus; Z87.11 Personal history of peptic ulcer disease
CPT/HCPCS: 36415; 74176; 80048; 80053; 81001; 81025; 82436; 82570; 82607; 83036; 83690; 83735; 83930; 83935; 84100; 84133; 84156; 84300; 84439; 84443; 85025; 85610; 87077; 87086; 87186; 87324; 88305; 93005; 99291; G0378; J0696; J1644; J2405; J2704; J3480; C9113; J2270; J2370; J2765; J7030; J7040

== ENCOUNTER 2019-05-06 08:18 | Inpatient (IN) | payer OTHER ==
[~2019-05-06] VITALS: Ht 154.9 cm; Wt 60.7 kg
[2019-05-08 06:15] VITALS: BP 93/59
== END 2019-05-08 12:35 | disposition home or self-care (01) | DRG 640 ==
LOC: ED 09:06 → EDIP 09:52 → 4NOR 12:17 → DCLOUNGE 05-08 12:28
PROVIDERS: ADMIT Hospitalist; ATTEND Internal Medicine
DX: E87.6 Hypokalemia (principal); N17.0 Acute kidney failure with tubular necrosis; E83.52 Hypercalcemia; E86.0 Dehydration; N18.2 Chronic kidney disease, stage 2 (mild); R11.2 Nausea with vomiting, unspecified; G43.909 Migraine, unspecified, not intractable, without status migrainosus; R79.89 Other specified abnormal findings of blood chemistry; R53.81 Other malaise; Z86.19 Personal history of other infectious and parasitic diseases; Z87.442 Personal history of urinary calculi
CPT/HCPCS: 36415; 71250; 74176; 76700; 80053; 81001; 83690; 83735; 84100; 85025; 87324; 93005; 93306; 96365; 96366; 96375; G0378; J1650; J2405; J3480; C9113; J2270; J7030; J7040